=== PATIENT | female | born 1995 | race Caucasian/White ===

== ENCOUNTER 2017-01-21 19:47 | Emergency (ER) | payer BC, MEDICAID ==
[~2017-01-21] VITALS: Ht 162.6 cm; Wt 62.2 kg
[2017-01-21 21:56] VITALS: BP 120/73
== END 2017-01-21 21:58 | disposition home or self-care (01) ==
LOC: ED 21:30
DX: S16.1XXA Strain of muscle, fascia and tendon at neck level, initial encounter (principal); S09.90XA Unspecified injury of head, initial encounter; S46.911A Strain of unspecified muscle, fascia and tendon at shoulder and upper arm level, right arm, initial encounter; S30.0XXA Contusion of lower back and pelvis, initial encounter; S06.0X0A Concussion without loss of consciousness, initial encounter; V80.010A Animal-rider injured by fall from or being thrown from horse in noncollision accident, initial encounter; Y93.52 Activity, horseback riding; X58.XXXA Exposure to other specified factors, initial encounter; Y92.89 Other specified places as the place of occurrence of the external cause; Y99.8 Other external cause status
CPT/HCPCS: 70450; 72110; 72125; 99284